=== PATIENT | female | born 1975 | race Two or more races ===

== ENCOUNTER 2022-03-27 08:00 | Emergency (ER) | payer OTHER, SELFPAY ==
--- NOTE | ~2022-03-27 | XR_ITS ---
EXAMINATION: XR CHEST CLINICAL INFORMATION: Chest pain COMPARISON: None TECHNIQUE: AP portable view of the chest was obtained. FINDINGS: No significant abnormality is noted involving the heart, lungs, mediastinum, bony thorax or soft tissues. XR/XR chest 1V IMPRESSION: No acute disease.
--- NOTE | 2022-03-27 08:13 | ECG_ITS ---
Test Reason : CP Blood Pressure : / mmHG Vent. Rate : 083 BPM Atrial Rate : 083 BPM P-R Int : 170 ms QRS Dur : 076 ms QT Int : 372 ms P-R-T Axes : 060 053 033 degrees QTc Int : 437 ms Normal sinus rhythm RSR' or QR pattern in V1 suggests right ventricular conduction delay Nonspecific ST abnormality Abnormal ECG No previous ECGs available Referred By: Generic ED Physician Electronically Signed By:EDGARD SANCHEZ MD
[2022-03-27 08:56] VITALS: BP 151/74; PULSE 83; RESP 20; TEMP 36.4; O2SAT 100; BMI 44.9
--- NOTE | 2022-03-27 09:33 | ED.CHESTPAIN ---
HPI - Chest Pain General Chief Complaint: Chest Pain Stated Complaint: chest pain, headache Time Seen by Provider: 03/27/22 09:31 Source: patient Mode of arrival: ambulatory Limitations: no limitations History of Present Illness HPI narrative: 46 yo female with hx of DM, HTN, asthma, myocardial bridging dx 2019 in [place] on plavix she presents with c/o chest pressure that started yesterday evening while at rest. She reports some mild nausea and dyspnea. She came here from [place] 02/06. She does not have a PCP appointment until May and has been out of multiple medications for 2 weeks. MD complaint: chest pain Pertinent past history: other (myocardial bridging) Onset (ago): hour(s) (since last night > 12 hours) Timing of current episode: constant Prior episodes: Yes Onset: during rest Pain location: substernal Pain radiation: none Severity: moderate Quality: heaviness (pressure) Relieving factors: nothing Exacerbating factors: nothing Context: other (ran out of all of her medications 2 weeks ago ) Associated symptoms: nausea and dyspnea Treatment prior to arrival: none Related Data Previous Rx's Medication Instructions Recorded albuterol sulfate 90 mcg/actuation 2 puff inhalation QID PRN 03/27/22 aerosol inhaler shortness of breath or wheezing #6.7 grams atorvastatin 40 mg tablet 40 mg PO DAILY #30 tabs 03/27/22 clopidogrel 75 mg tablet (Plavix) 75 mg PO DAILY #30 tabs 03/27/22 cyclobenzaprine 10 mg tablet 10 mg PO TID PRN muscle spasm #30 03/27/22 tabs gabapentin 400 mg capsule 400 mg PO BEDTIME #30 caps 03/27/22 glimepiride 4 mg tablet 4 mg PO QAM #30 tabs 03/27/22 insulin human U-100 NPH-regulr 15 unit (0.15 mL) subcut BID #10 mL 03/27/22 70-30 mix 100 unit/mL subcutaneous susp (Humulin 70/30 U-100 Insulin) insulin syringe-needle U-100 0.3 #100 ea 03/27/22 mL 31 gauge x 5/16 (Sure-Ject Insulin Syringe) levothyroxine 88 mcg capsule 88 mcg PO DAILY #30 caps 03/27/22 loratadine 10 mg tablet 10 mg PO DAILY #30 tabs 03/27/22 losartan 50 mg tablet 50 mg PO BID #60 tabs 03/27/22 metformin 1,000 mg tablet 1,000 mg PO BID #60 tabs 03/27/22 montelukast 10 mg tablet 10 mg PO DAILY #30 tabs 03/27/22 nitroglycerin 0.4 mg sublingual 0.4 mg sublingual Q5M PRN chest 03/27/22 tablet pain #20 tabs Allergies Allergy/AdvReac Type Severity Reaction Status Date / Time aspirin Allergy Rash Verified 03/27/22 10:13 Penicillins Allergy Rash Verified 03/27/22 08:59 Review of Systems Review of Systems: Constitutional : No Weight loss, No Fever, No Chills ENT/Mouth : No sore throat, No Rhinorrhea Eyes: No Eye Pain, No Swelling Cardiovascular : pos Chest Pain, pos SOB, no Dyspnea on Exertion, No Orthopnea, No Edema, No Palpitations Respiratory : No Cough, No Sputum Gastrointestinal : pos Nausea, No Vomiting, No Diarrhea, No abdominal Pain, No Hematochezia, No Melena Genitourinary : No Dysuria, No Urinary Frequency Musculoskeletal : No joint pain, No Myalgias, No Joint Swelling Skin : No Skin Lesions, No rash Neuro : No Weakness, No Numbness, No Dizziness, No Headache Psych : No Anxiety/Panic, No Depression Heme/Lymph: No Bruising, No Lymphadenopathy Endocrine : No Polyuria, No Polydipsia All other systems reviewed and are negative [facility] Past Medical History Attestation statement: The following information was validated with the patient. Medical History (Updated 03/27/22 @ 11:33 by Rema Quach DO) Asthma Coronary artery spasm Coronary-myocardial bridge Diabetes HTN (hypertension) Hyperlipidemia Hypothyroidism Neuropathy Seasonal allergies Social History Social History (Updated 03/27/22 @ 09:55 by Rema Quach DO) Patient Tobacco Use Status: Never used Tobacco Advance Directives: No Advance Directives Information Provided: Yes Physical Exam Vital Signs: Vital Signs: Last Vital Signs Temp 97.6 F 03/27/22 08:56 Pulse 82 03/27/22 09:57 Resp 20 03/27/22 08:56 BP 138/76 03/27/22 09:57 Pulse Ox 100 03/27/22 08:56 O2 Del Method 03/27/22 08:56 BMI result Body Mass Index 44.9 Appearance: Alert. Oriented X3. No acute distress. Eyes: Pupils equal, round and reactive to light. ENT: Pharynx normal. Neck: Normal inspection. Neck supple. CVS: Normal heart rate and rhythm. Pulses normal. Respiratory: No respiratory distress. Breath sounds normal. Abdomen: Soft and nontender. Skin: Skin warm and dry. Normal skin color. Normal skin turgor. Extremities: No lower extremity edema. No calf ttp Neuro: Oriented X 3. No motor deficit. No sensory deficit. Course Course Course Narrative: nonischemic EKG, CXR negative, symptoms x 12 hours stable for DC will refill her 10+ medications MDM - Chest Pain MDM Narrative Medical decision making narrative: 46 yo female with hx of DM, HTN, asthma, myocardial bridging dx 2019 in [place] on plavix at this time here with chest pain since yesterday - will need troponin, COVID swab, CXR, nitro for pain - refused aspirin. Could possibly be due to myocardial bridge and lack of medicine - will workup and if all negative will restart her medications. Was told in [place] this was medically managed and seemed to do well with her medications. Doubt VTE - no signs of DVT, no hypoxia, hasn't traveled in over 4 weeks. Dispo per results and findings. Lab Data Result diagrams: 03/27/22 09:48 03/27/22 09:48 Labs: Lab Results 03/27/22 03/27/22 03/27/22 Range/Units 09:48 09:48 09:48 WBC 10.0 (4.8-10.8) X10*3/uL RBC 4.00 L (4.20-5.50) X10*6/uL Hgb 11.7 L (12.0-16.0) g/dl Hct 35.5 L (37.0-47.0) % MCV 88.8 (80.0-98.0) fL MCH 29.3 (27.0-33.0) pg MCHC 33.0 (31.0-35.0) g/dl RDW 13.7 (11.0-16.0) % Plt Count 260 (160-400) X10*3/uL MPV 10.8 (9.4-12.3) fL Immature Gran % (Auto) 0.7 H (0.0-0.4) % Neut % (Auto) 68.3 (45-73) % Lymph % (Auto) 23.3 (20-40) % [place] % (Auto) 4.0 (2-11) % Eos % (Auto) 3.2 (0-4) % Baso % (Auto) 0.5 (0-2) % Lymph # (Auto) 2.3 (1.2-4.9) X10*3/uL [place] # (Auto) 0.4 (0.1-1.2) X10*3/uL Eos # (Auto) 0.3 (0.0-0.4) X10*3/uL Baso # (Auto) 0.1 (0.0-0.2) X10*3/uL Abs Immat Gran (auto) 0.07 H (0.00-0.03) X10*3/uL Absolute Neuts (auto) 6.8 (2.0-8.3) x10*3/uL Absolute Nucleated RBC 0.000 (0.0-0.012) X10*3/uL Nucleated RBC % (auto) 0.0 (0.0-0.2) /100WBC Sodium 137 (135-145) mmol/L Potassium 4.2 (3.3-5.1) mmol/L Chloride 103 (96-108) mmol/L Carbon Dioxide 23 (22-29) mmol/L Anion Gap 15 (12-20) BUN 11 (9-16) mg/dL Creatinine 0.93 (0.5-1.4) mg/dL Estim Creat Clear Calc 100.4 Estimated GFR > 60 Random Glucose 420 H* (60-115) mg/dL Calcium 8.7 (8.4-10.2) mg/dL Magnesium 1.9 (1.6-2.6) mg/dL Total Bilirubin 0.4 (0.0-1.0) mg/dL Direct Bilirubin < 0.2 (0.0-0.5) mg/dL AST 31 (5-31) U/L ALT 42 H (0-31) U/L Alkaline Phosphatase 94 (39-117) U/L Troponin I High Sens < 3.5 (<3.5-17.0) ng/L Total Protein 7.2 (6.5-8.0) g/dL Albumin 4.2 (3.5-5.0) g/dL TSH 1.37 (0.32-4.0) uIU/mL COVID-19 (LUCILA) (Negative) COVID-19 Clin Com 03/27/22 Range/Units 09:48 WBC (4.8-10.8) X10*3/uL RBC (4.20-5.50) X10*6/uL Hgb (12.0-16.0) g/dl Hct (37.0-47.0) % MCV (80.0-98.0) fL MCH (27.0-33.0) pg MCHC (31.0-35.0) g/dl RDW (11.0-16.0) % Plt Count (160-400) X10*3/uL MPV (9.4-12.3) fL Immature Gran % (Auto) (0.0-0.4) % Neut % (Auto) (45-73) % Lymph % (Auto) (20-40) % [place] % (Auto) (2-11) % Eos % (Auto) (0-4) % Baso % (Auto) (0-2) % Lymph # (Auto) (1.2-4.9) X10*3/uL [place] # (Auto) (0.1-1.2) X10*3/uL Eos # (Auto) (0.0-0.4) X10*3/uL Baso # (Auto) (0.0-0.2) X10*3/uL Abs Immat Gran (auto) (0.00-0.03) X10*3/uL Absolute Neuts (auto) (2.0-8.3) x10*3/uL Absolute Nucleated RBC (0.0-0.012) X10*3/uL Nucleated RBC % (auto) (0.0-0.2) /100WBC Sodium (135-145) mmol/L Potassium (3.3-5.1) mmol/L Chloride (96-108) mmol/L Carbon Dioxide (22-29) mmol/L Anion Gap (12-20) BUN (9-16) mg/dL Creatinine (0.5-1.4) mg/dL Estim Creat Clear Calc Estimated GFR Random Glucose (60-115) mg/dL Calcium (8.4-10.2) mg/dL Magnesium (1.6-2.6) mg/dL Total Bilirubin (0.0-1.0) mg/dL Direct Bilirubin (0.0-0.5) mg/dL AST (5-31) U/L ALT (0-31) U/L Alkaline Phosphatase (39-117) U/L Troponin I High Sens (<3.5-17.0) ng/L Total Protein (6.5-8.0) g/dL Albumin (3.5-5.0) g/dL TSH (0.32-4.0) uIU/mL COVID-19 (LUCILA) Negative (Negative) COVID-19 Clin Com See Note ECG Data ECG #1: Attestation: I personally reviewed and interpreted this ECG as follows: ECG interpretation date: 03/27/22 ECG interpretation time: 09:34 Interpretation: Rate: 83 Rhythm: NSR [place]: normal Normal P waves. Normal [place]. Normal QRS complex. ST T wave : normal no VICTOR MANUEL qTC: normal prior studies: no acute ischemia The study has been interpreted contemporaneously by me. . Discharge Plan Discharge Clinical Impression: Atypical chest pain Patient Disposition: Home, Self-Care Instructions: Chest Pain (ED), Medicine Refill (ED) Additional Instructions: return to ED for any worsening symptoms or concerns see your doctor as scheduled Prescriptions: New cyclobenzaprine 10 mg tablet 10 mg PO TID PRN (Reason: muscle spasm) Qty: 30 1RF gabapentin 400 mg capsule 400 mg PO BEDTIME Qty: 30 1RF clopidogrel [Plavix] 75 mg tablet 75 mg PO DAILY Qty: 30 1RF montelukast 10 mg tablet 10 mg PO DAILY Qty: 30 1RF glimepiride 4 mg tablet 4 mg PO QAM Qty: 30 1RF Rx Instructions: administer with breakfast levothyroxine 88 mcg capsule 88 mcg PO DAILY Qty: 30 1RF loratadine 10 mg tablet 10 mg PO DAILY Qty: 30 1RF atorvastatin 40 mg tablet 40 mg PO DAILY Qty: 30 1RF nitroglycerin 0.4 mg tablet, sublingual 0.4 mg sublingual Q5M PRN (Reason: chest pain) Qty: 20 0RF Rx Instructions: do not exceed 3 doses per episode losartan 50 mg tablet 50 mg PO BID Qty: 60 1RF metformin 1,000 mg tablet 1,000 mg PO BID Qty: 60 1RF albuterol sulfate 90 mcg/actuation HFA aerosol inhaler 2 puff inhalation QID PRN (Reason: shortness of breath or wheezing) Qty: 6.7 0RF Humulin 70/30 U-100 Insulin 100 unit/mL (70-30) suspension 15 unit subcut BID Qty: 10 1RF Rx Instructions: with meals (DME) insulin syringe-needle U-100 [Sure-Ject Insulin Syringe] 0.3 mL 31 gauge x 5/16 syringe See Rx Instructions .Route Qty: 100 1RF Rx Instructions: As directed Interventions: ED Discharge Assessment Last Done: 03/27/22 12:07 Discharge Date/Time: 03/27/22 11:50 Print Language: Nepali
[2022-03-27 09:54] LABS: MANUAL DIFF FLAG NO
[2022-03-27 09:56] LABS: Basophils Absolute Auto 0.1 X10*3/uL (0.0-0.2); Basophils Percent Auto 0.5 % (0-2); Eosinophils Absolute Auto 0.3 X10*3/uL (0.0-0.4); Eosinophils Percent Auto 3.2 % (0-4); Hematocrit 35.5 % (37.0-47.0); Hemoglobin 11.7 g/dl (12.0-16.0); Imm Gran Abs Auto 0.07 X10*3/uL (0.00-0.03); Imm Gran Pct Auto 0.7 % (0.0-0.4); Lymphocytes Absolute Auto 2.3 X10*3/uL (1.2-4.9); Lymphocytes Percent Auto 23.3 % (20-40); Mean Corpuscular Hemoglobin 29.3 pg (27.0-33.0); Mean Corpuscular Volume 88.8 fL (80.0-98.0); Mean Platelet Volume 10.8 fL (9.4-12.3); Monocytes Absolute Auto 0.4 X10*3/uL (0.1-1.2); Neutrophils Absolute Auto 6.8 x10*3/uL (2.0-8.3); Neutrophils Percent Auto 68.3 % (45-73); Platelet Count 260 X10*3/uL (160-400); Red Cell Distribution Width 13.7 % (11.0-16.0)
[2022-03-27 09:57] VITALS: BP 138/76; PULSE 82
[2022-03-27] MEDS: Nitroglycerin 0.4 MG TAB.SUBL SUBLINGUAL (09:57)
[2022-03-27 10:09] LABS: COVID-19 Test Negative (Negative); IDNOW Serial# 55D5AD1C
[2022-03-27 10:37] LABS: Alanine Aminotransferase 42 U/L (0-31); Albumin Level 4.2 g/dL (3.5-5.0); Alkaline Phosphatase 94 U/L (39-117); Anion Gap 15 (12-20); Aspartate Amino Transferase 31 U/L (5-31); Bilirubin Direct < 0.2 mg/dL (0.0-0.5); Bilirubin Total 0.4 mg/dL (0.0-1.0); Blood Urea Nitrogen 11 mg/dL (9-16); Calcium 8.7 mg/dL (8.4-10.2); Carbon Dioxide 23 mmol/L (22-29); Chloride 103 mmol/L (96-108); Creatinine Clr Calc Pharmacy 100.4; Estimated Glomerular Filt Rate > 60; Glucose Random 420 mg/dL (60-115); Magnesium 1.9 mg/dL (1.6-2.6); Potassium 4.2 mmol/L (3.3-5.1); Sodium 137 mmol/L (135-145); Total Protein 7.2 g/dL (6.5-8.0)
[2022-03-27 11:03] LABS: Thyroid Stimulating Hormone 1.37 uIU/mL (0.32-4.0)
[2022-03-27] MEDS: Insulin Lispro 100 UNIT/ML 3 ML VIAL SUBCUT (11:14)
[2022-03-27 11:15] LABS: Troponin-I High Sensitivity < 3.5 ng/L (<3.5-17.0)
--- NOTE | 2022-03-27 13:22 | MHC.CM.ED ---
Received notification from Dr Quach that patient was discharged with 14 prescriptions sent to [facility] pharmacy. Patient contacted Dr Quach because the pharmacy didn't receive all of the prescriptions. T/W spoke with pharmacist at [facility]. They received everything but Levothyroxine and insulin needle prescriptions. Dr Quach aware and will resend those 2 prescriptions.
[2022-03-27 15:40] LABS: Glucose, Whole Blood 290 mg/dL (60-115)
== END 2022-03-27 11:50 | disposition home or self-care (01) ==
PROVIDERS: Emergency Provider Emergency Medicine; PCP Hospitalist
DX: R07.89 Other chest pain (principal); Z20.822 Contact with and (suspected) exposure to COVID-19; I10 Essential (primary) hypertension; E11.9 Type 2 diabetes mellitus without complications; E78.5 Hyperlipidemia, unspecified; Z79.4 Long term (current) use of insulin; Z79.899 Other long term (current) drug therapy; Z79.02 Long term (current) use of antithrombotics/antiplatelets
CPT/HCPCS: 71045; 80048; 80076; 82947; 83735; 84443; 84484; 85025; 87635; 93005; 99284